=== PATIENT | male | born 1965 | race Caucasian/White ===

== ENCOUNTER 2021-06-04 20:25 | Emergency (ER) | payer BC ==
[2021-06-04] MEDS ORDERED: Diphtheria,Pertussis(Acell),Tetanus Vaccine 0.5 ML SDV IM ONE (20:46)
[2021-06-04] MEDS ORDERED: Lidocaine 1% with EPINEPHrine 1:100,000 50 ML MDV INFILT ONE (20:46)
[2021-06-04] MEDS ORDERED: Lidocaine 1% 10 ML MDV INJECT ONE (20:46)
--- NOTE | 2021-06-04 20:47 | EDM.PDOC ---
ED HPI GENERAL MEDICAL PROBLEM - General Chief Complaint: Laceration Stated Complaint: FINGERS CAUGHT IN GARAGE DOOR Time Seen by Provider: 06/04/21 20:40 Source of Information: Reports: Patient, RN Notes Reviewed History Limitations: Reports: No Limitations - History of Present Illness INITIAL COMMENTS - FREE TEXT/NARRATIVE: This patient presents to the emergency department for evaluation of a finger injury. He was repairing a garage door when he got his finger caught in the track. He has a laceration to the left third digit. He denies other injuries or concerns. He states that there was no pinching or crushing in the garage door wheels did not go over his finger. Onset: Today, Sudden Onset Date: 06/06/21 Onset Time: 19:30 - Related Data Allergies Allergy/AdvReac Type Severity Reaction Status Date / Time No Known Allergies Allergy Verified 06/05/21 03:43 ED ROS GENERAL - Review of Systems Review Of Systems: Comprehensive ROS is negative, except as noted in HPI. ED EXAM, SKIN/RASH Exam: See Below Exam Limited By: No Limitations General Appearance: Alert, No Apparent Distress Eye Exam: Bilateral Eye: Normal Inspection, PERRL Ears: Normal External Exam Nose: Normal Inspection Head: Atraumatic, Normocephalic Neck: Normal Inspection, Full Range of Motion Respiratory/Chest: No Respiratory Distress, No Accessory Muscle Use Extremities: Normal Inspection, Normal Range of Motion, Normal Capillary Refill Neurological: Alert, Oriented Skin: Warm, Dry, Wound/Incision (1.5 cm laceration to the palmar surface of his left third digit distal to the DIP it is an irregular shape. ) ED SKIN PROCEDURES - Laceration/Wound Repair Left Distal Digit - 3rd (Middle) Appearance: Superficial, Mildly Contaminated Distal NVT: Neuro & Vascular Intact, No Tendon Injury Anesthetic Type: Digital Local Anesthesia - Lidocaine (Xylocaine): 1% Plain, Other (Digital block of left third digit with 1% lidocaine, approximately 8 mils.) Local Anesthetic Volume: Other Skin Prep: Chlorhexidine (Hibiciens) Exploration/Debridement/Repair: Wound Explored, In a Bloodless Field, No Foreign Material Found Closed with: Sutures Lac/Wound length In cm: 2 Suture Size: 5-0 # of Sutures: 6 Suture Type: Other (Vicryl) Tetanus Status Addressed: Yes (Tetanus booster given) Complications: No Progress/Comments: Wound covered with antibiotic ointment and a sterile bulky dressing. Course - Vital Signs Last Recorded V/S: Last Vital Signs Temp 36.9 C 06/04/21 20:28 Pulse 74 06/04/21 20:28 Resp 18 06/04/21 20:28 BP 144/88 H 06/04/21 20:28 Pulse Ox 98 06/04/21 20:28 - Orders/Labs/Meds Meds: Medications Discontinued Medications Generic Name Dose Route Start Last Admin Trade Name Cirilo PRN Reason Stop Dose Admin Diphtheria/Tetanus/Acell Pertussis 0.5 ml 06/04/21 20:46 06/04/21 21:08 Diphtheria,Pertussis(Acell),Tetanus Vaccine 0.5 Ml Sdv IM 06/04/21 20:47 0.5 ml .ONCE ONE Administration Lidocaine HCl 8 ml 06/04/21 20:46 06/04/21 20:46 Lidocaine 1% 10 Ml Mdv INJECT 06/04/21 20:47 8 ml ONETIME ONE Administration - Re-Assessments/Exams Free Text/Narrative Re-Assessment/Exam: 06/04/21 21:54 This patient presents to the emergency department for evaluation of a finger laceration. The wound was carefully evaluated and explored. The laceration was closed with 5-0 Vicryl, 6 sutures. There is no evidence of muscular, tendon, or bony damage with this laceration. There are no signs of foreign body. Possible complications including infections and scarring were reviewed with the patient. He should follow-up with his primary care provider as needed for any signs of infection. He does not have a requirement for suture removal as Vicryl sutures were placed. The patient was stable at discharge and all questions were answered. Departure - Departure Time of Disposition: 21:30 Disposition: Home, Self-Care 01 Condition: Good Clinical Impression: Laceration of finger of left hand Qualifiers: Encounter type: initial encounter Finger: middle finger Damage to nail status: without damage Foreign body presence: without foreign body Qualified Code(s): S61.213A - Laceration without foreign body of left middle finger without damage to nail, initial encounter - Discharge Information *PRESCRIPTION DRUG MONITORING PROGRAM REVIEWED*: Not Applicable *COPY OF PRESCRIPTION DRUG MONITORING REPORT IN PATIENT NAT: Not Applicable Instructions: Contusion, [id number], Laceration Care, Adult, [id number] Referrals: PCP,None [Primary Care Provider] - Forms: ED Department Discharge Additional Instructions: Follow up as discussed
== END 2021-06-04 21:32 | disposition home or self-care (01) ==
LOC: LB.ED 20:25
DX: S61.213A Laceration without foreign body of left middle finger without damage to nail, initial encounter (principal); Z23 Encounter for immunization; W23.0XXA Caught, crushed, jammed, or pinched between moving objects, initial encounter
CPT/HCPCS: 12001; 90471; 90715; 99283-25

== ENCOUNTER 2024-07-29 18:40 | Emergency (ER) | payer BC ==
[~2024-07-29 18:40] MED LIST: Doxycycline 100 MG Cap ONE
[2024-08-03 13:37] LABS: ANAPLASMA PHAGOCYTOPHILUM PCR Not Detected; BABESIA MICROTI BY PCR Not Detected; BABESIA SPECIES BY PCR Not Detected; EHRLICHIA CHAFFEENSIS BY PCR Not Detected; EHRLICHIA EWINGII/CANIS BY PCR Not Detected; EHRLICHIA MURIS-LIKE BY PCR Not Detected
[2024-08-03 15:18] LABS: B. BURGDORFERI IGG IMMUNOBLOT Negative (Negative); B. BURGDORFERI IGM IMMUNOBLOT Negative (Negative)
== END 2024-07-29 20:05 | disposition home or self-care (01) ==
LOC: LB.ED 18:40
DX: S20.362A Insect bite (nonvenomous) of left front wall of thorax, initial encounter (principal); I10 Essential (primary) hypertension; Z90.79 Acquired absence of other genital organ(s); Z79.899 Other long term (current) drug therapy; W57.XXXA Bitten or stung by nonvenomous insect and other nonvenomous arthropods, initial encounter
CPT/HCPCS: 36415; 86617; 87468; 87469; 87484; 87798; 99282; 99283; A9270-GY

== ENCOUNTER 2024-09-30 18:10 | Emergency (ER) | payer BC ==
[2024-09-30] MEDS: Ketorolac 30 MG/ML SDV IM ONE (18:28)
== END 2024-09-30 19:38 | disposition home or self-care (01) ==
LOC: LB.ED 18:10
DX: S90.32XA Contusion of left foot, initial encounter (principal); I10 Essential (primary) hypertension; E66.9 Obesity, unspecified; Z68.41 Body mass index [BMI] 40.0-44.9, adult; Z90.79 Acquired absence of other genital organ(s); Z79.899 Other long term (current) drug therapy; W23.1XXA Caught, crushed, jammed, or pinched between stationary objects, initial encounter
CPT/HCPCS: 73630; 96372; 99283; J1885

== ENCOUNTER 2024-10-29 12:20 | Emergency (ER) | payer BC ==
[2024-10-29] MEDS: Ketorolac 30 MG/ML SDV IM ONE (12:50)
[2024-10-29] MEDS ORDERED: traMADol 50 MG Tab ONE (13:30)
== END 2024-10-29 13:35 | disposition home or self-care (01) ==
LOC: LB.ED 12:20
DX: S83.91XA Sprain of unspecified site of right knee, initial encounter (principal); I10 Essential (primary) hypertension; E66.9 Obesity, unspecified; Z68.36 Body mass index [BMI] 36.0-36.9, adult; Z79.899 Other long term (current) drug therapy; X58.XXXA Exposure to other specified factors, initial encounter; Y93.01 Activity, walking, marching and hiking
CPT/HCPCS: 73562; 96372; 99283; A9270; J1885